=== PATIENT | female | born 1970 | race Caucasian/White ===

== ENCOUNTER 2025-02-10 15:09 | Emergency (ER) | payer OTHER, SELFPAY ==
[2025-02-10 15:10] VITALS: BMI 43.5
[2025-02-10 15:25] VITALS: BP 117/83; PULSE 110; RESP 18; TEMP 36.6; O2SAT 95
--- NOTE | 2025-02-10 15:36 | EDNOTE_ITS ---
<Statement entered by Zelda Bishop MD - 02/10/25 17:51> As co-signing physician, I was present and available for consult prn. I concur with the plan and care as documented by the midlevel provider. ED General RME/HPI General Chief complaint: General Adult/Misc Complain Stated complaint: SWELLING TO R) SIDE OF HEAD/FACE Time Seen by Provider: 02/10/25 15:26 Arrival date/time: 02/10/25 15:09 54-year-old female presents to the emergency department today for complaints of abscess to right side of her scalp patient for symptoms ongoing for last couple of weeks Limitations: no limitations Related Data Home Medications ?Medication ?Instructions ?Recorded ?Confirmed Levothyroxine * (SYNTHROID *) 50 mcg PO QDAY #0 tabs 0 01/28/16 lisinopril 20 mg tablet 20 mg PO QDAY #0 tabs hydrochlorothiazide 25 mg tablet 25 mg PO QAM #0 tabs 02/28/16 metformin 500 mg tablet 500 mg PO BIDAC #0 tabs 02/12 04/29 (Glucophage) sertraline 25 mg tablet (Zoloft) 25 mg PO HS #0 tabs 0 02/28/16 Previous Rx's ?Medication ?Instructions ?Recorded clindamycin HCl 150 mg capsule 450 mg (3 x 150 mg) PO TID 7 days 02/10/25 #63 caps mupirocin 2 % topical ointment 1 applic topical TID 10 days #22 02/10/25 grams Allergies Allergy/AdvReac Type Severity Reaction Status Date / Time No Known Allergies Allergy Verified 02/10/25 15:14 Review of Systems Review of Systems Systems Reviewed: All systems reviewed, normal except as documented Constitutional Constitutional: Reports system reviewed and no additional complaints, except as documented, Denies fever(s) and Denies headache(s) Eyes Eyes: Reports system reviewed and no additional complaints, except as documented and Denies blurry vision ENT Ears, Nose, Mouth, and Throat: Reports system reviewed and no additional complaints, except as documented, Denies headache(s), Denies nasal congestion and Denies nasal discharge Cardiovascular Cardiovascular: Reports system reviewed and no additional complaints, except as documented, Denies chest pain and Denies dyspnea Respiratory Respiratory: Reports system reviewed and no additional complaints, except as documented, Denies chest congestion, Denies cough and Denies dyspnea Gastrointestinal Gastrointestinal: Reports system reviewed and no additional complaints, except as documented and Denies abdominal pain Integumentary/Breasts Skin/Breast: Reports system reviewed and no additional complaints, except as documented, Denies rash and Reports other (Abscess right side of head) Neurologic Neurologic: Reports system reviewed and no additional complaints, except as documented, Reports as per HPI and Denies headache(s) Past Medical History Social History SMOKING STATUS: Never smoker ED Exam General Limitations: Present no limitations General appearance: Present alert and in no apparent distress Head Head exam: Present atraumatic Eye Eye exam: Present normal appearance, PERRL and EOMI ENT ENT exam: Present normal exam, normal oropharynx and mucous membranes moist Neck Neck exam: Present normal inspection, full ROM and trachea midline Chest Chest inspection: Present normal inspection and symmetric chest wall rise Respiratory Respiratory exam: Present normal lung sounds bilaterally Cardiovascular Cardiovascular exam: Present regular rate, normal rhythm and normal heart sounds Abdominal Exam Abdominal exam: Present soft and normal bowel sounds Extremities Exam Extremities exam: Present normal inspection and full ROM Back Exam Back exam: Present normal inspection and full ROM Neurological Exam Neurological exam: Present alert, oriented X3 and CN II-XII intact Psychiatric Psychiatric exam: Present normal affect and normal mood Skin Skin exam: Present warm, dry, intact and normal color Course Quality Measures none Vital Signs Vital signs: Vital Signs Temperature 97.8 F 02/10/25 15:25 Pulse Rate 110 H 02/10/25 15:25 Respiratory Rate 18 02/10/25 15:25 Blood Pressure 117/83 02/10/25 15:25 Pulse Oximetry (%) 95 02/10/25 15:25 Oxygen Delivery Method Room Air 02/10/25 15:25 O2 saturation 95% room air within normal limits [facility] Patient data External records reviewed:: [facility] previous records Clinical information provided by:: patient Social determinants that could affect healthcare access:: none Patient has the following chronic illnesses:: See history How is presenting disease/condition affected by chronic disease/condition?: uneffected by Evaluation data The following diagnostics were reviewed and interpreted by me:: other (specify) Lab and/or radiology exams considered but not ordered:: Consider not ordered Interpretation Summary: N/A Medications Medications considered but not ordered:: Given Medication administrations:: Given Consultations Consultation(s) initiated? (list below): No Diagnosis Differential Diagnosis ED Complaint MDM: Abscess, cellulitis, malignancy, fungal infection Most likely diagnosis given after review of the tests above:: Skin infection right side of scalp Admission Indicated Admission indicated?: not indicated Explain why admission is indicated or not indicated:: No criteria Admission Request Was there a request for admission?: No Disposition Plan Disposition Plan: Discharge Discharge Attestation Discharge Attestation: The patient and all family members were given an opportunity to ask questions and understood the discharge instructions. Discharge instructions specifically effects, indications for sooner follow up or return to the emergency department, and the expected course of current diagnosis. Patient condition: Stable Medical Decision Making MDM Narrative MDM Narrative: 54-year-old female presents to the emergency department today for complaints of abscess to right side of her scalp patient for symptoms ongoing for last couple of weeks Patient reports he is visiting from [facility] patient reports she does have a [employer] in [place] On exam patient has what appears to be an abscess to the right side of her scalp it is small and not fluctuant Patient does have some hair loss around this area which is concerning I explained to the patient when she gets back to [facility] she needs to have a biopsy and further evaluation. Patient discharged home in no distress to follow-up with primary care doctor in the next 24 to 48 hours and for any worsening symptoms to return to the ER immediately Differential Diagnosis Differential Diagnosis: Abscess, cellulitis, malignancy, fungal infection Medical Records Medical records reviewed: Yes I reviewed the patient's medical records. Discharge Plan Plan Patient Disposition: HOME (Self Care) Disposition Comment: Stable Prescriptions/Referrals Prescriptions/Med Rec: New clindamycin HCl 150 mg capsule 450 mg PO TID 7 Days Qty: 63 0RF mupirocin 2 % ointment 1 applic topical TID 10 Days Qty: 22 0RF No Action lisinopril 20 MG tablet 20 mg PO QDAY Qty: 0 Levothyroxine * (SYNTHROID *) 50 MCG tablet 50 mcg PO QDAY Qty: 0 metformin [Glucophage] 500 MG tablet 500 mg PO BIDAC Qty: 0 sertraline [Zoloft] 25 MG tablet 25 mg PO HS Qty: 0 hydrochlorothiazide 25 MG tablet 25 mg PO QAM Qty: 0 Problem List Clinical Impression: Infection of scalp Patient/Caregiver Discharge Instructions Additional Instructions: Please follow-up with your [employer] when you get back to [place] for worsening symptoms return immediately Print Language: Bulgarian Stand Alone Forms: Miya Award Info., Patient Portal Info Letter PA/PRODUCTION ARTIST Supervising Physician PA/PRODUCTION ARTIST Supervising Physician: Dr. Bishop
== END 2025-02-10 15:42 | disposition home or self-care (01) ==
LOC: SERX 15:48
PROVIDERS: Emergency Provider Emergency Medicine
DX: L08.9 Local infection of the skin and subcutaneous tissue, unspecified (principal)
CPT/HCPCS: 99281